=== PATIENT | female | born 1980 | race Hispanic/Latino ===

== ENCOUNTER 2020-06-26 03:57 | Emergency (ER) | payer OTHER ==
[2020-06-26] MEDS ORDERED: SODIUM CHLORIDE 0.9% 1000 ML 1,000 ML IV ONE (04:16)
--- NOTE | 2020-06-26 04:20 | Emergency Department Report ---
<WHITNEY VILLEDA KurtYang - Last Filed: 06/26/20 05:39> History of Present Illness - General Chief Complaint: Overdose Stated Complaint: OD Time Seen by Provider: 06/26/20 04:16 Source: patient, police, EMS - History of Present Illness Initial Comments: Patient is 40 years old female with no significant past medical history. Patient brought to the ER via EMS from care home for evaluation of possible overdose on Xanax and methamphetamine according to EMS report. EMS stated that care home s taff found patient to be drowsy and they gave her Narcan and she started talking. EMS stated that patient has been alert oriented x4. Upon arrival to the ER patient slightly obtunded however she stating that she is sleepy. Patient is not communicating at this moment refusing to give the reason for the overdose and the medication that she used. Complaint: other -: Last night Intent: unwilling to say - Related Data Previous Rx's Medication Instructions Recorded Last Taken Type Sulfamethoxazole/Trimethoprim 1 each PO BID #6 tablet 06/26/20 Unknown Rx [Bactrim DS TAB] Allergies Allergy/AdvReac Type Severity Reaction Status Date / Time No Known Allergies Allergy Unverified 06/26/20 06:07 ED Review of Systems Comment: Unobtainable due to pts medical conditions ED Past Medical Hx - Medications Home Medications: Home Medications Medication Instructions Recorded Confirmed Last Taken Type Sulfamethoxazole/Trimethoprim 1 each PO BID #6 tablet 06/26/20 Unknown Rx [Bactrim DS TAB] ED Physical Exam - General General appearance: in no apparent distress, obtunded - Head Head exam: Present: atraumatic, normocephalic, normal inspection - Eye Eye exam: Present: normal appearance - ENT ENT exam: Present: normal exam, normal orophraynx, mucous membranes moist - Neck Neck exam: Present: normal inspection, full ROM. Absent: tenderness, meningismus - Respiratory Respiratory exam: Present: normal lung sounds bilaterally - Cardiovascular Cardiovascular Exam: Present: regular rate, normal rhythm, normal heart sounds - GI/Abdominal GI/Abdominal exam: Present: soft, normal bowel sounds. Absent: distended, tenderness, guarding, rebound, rigid, organomegaly, mass, bruit, pulsatile mass, hernia - Extremities Exam Extremities exam: Present: normal inspection, full ROM, normal capillary refill. Absent: pedal edema, calf tenderness - Back Exam Back exam: Present: normal inspection, full ROM. Absent: CVA tenderness (R), CVA tenderness (L) - Neurological Exam Neurological exam: Present: alert, CN II-XII intact, reflexes normal. Absent: motor sensory deficit - Psychiatric Psychiatric exam: Present: flat affect - Skin Skin exam: Present: warm, dry, intact ED Medical Decision Making - Lab Data Result diagrams: 06/26/20 04:38 06/26/20 04:38 - Medical Decision Making Patient is 40 years old female with no significant past medical history. Patient brought to the ER via EMS from care home for evaluation of possible overdose on Xanax and methamphetamine according to EMS report. EMS stated that care home staff found patient to be drowsy and they gave her Narcan and she started talking. EMS stated that patient has been alert oriented x4. Upon arrival to the ER patient slightly obtunded however she stating that she is sleepy. Patient is not communicating at this moment refusing to give the reason for the overdose and the medication that she used. Patient remained asymptomatic in the ER. Patient sleeping however she is easily workable. Labs reviewed and is unremarkable. UDS is still pending. ED Disposition Clinical Impression: Illicit drug use, Methamphetamine abuse, Benzodiazepine abuse, Marijuana abuse, Hypokalemia, UTI (urinary tract infection) Disposition: - TO HOME OR SELFCARE Condition: Stable Instructions: Urinary Tract Infection, Adult, Substance Use Disorder, Hypokalemia Referrals: PRIMARY CARE, [Primary Care Provider] - 3-5 Days [facility] [Provider Group] - 3-[address] [facility] [Outside] - 3-5 Days <EDMUND ACEVES - Last Filed: 06/26/20 11:40> ED Review of Systems ROS: Stated complaint: OD Other details as noted in HPI ED Course Vital Signs 06/26/20 06/26/20 06/26/20 03:57 05:02 05:15 Temperature 98.4 F Pulse Rate 68 67 Respiratory 16 15 18 Rate Blood Pressure 150/78 142/93 O2 Sat by Pulse 98 100 Oximetry 06/26/20 06/26/20 06/26/20 05:31 05:45 06:01 Temperature Pulse Rate 66 69 67 Respiratory 16 17 17 Rate Blood Pressure 150/95 155/86 135/89 O2 Sat by Pulse 98 98 97 Oximetry 06/26/20 06/26/20 06/26/20 06:15 06:31 06:45 Temperature Pulse Rate 67 81 82 Respiratory 17 16 16 Rate Blood Pressure 152/95 141/99 146/97 O2 Sat by Pulse 98 98 99 Oximetry 06/26/20 06/26/20 06/26/20 07:01 07:15 07:31 Temperature Pulse Rate 74 66 72 Respiratory 18 15 16 Rate Blood Pressure 110/86 153/93 146/89 O2 Sat by Pulse 99 99 99 Oximetry 06/26/20 06/26/20 06/26/20 07:45 08:01 08:31 Temperature Pulse Rate 71 70 76 Respiratory 17 14 15 Rate Blood Pressure 140/91 154/90 143/96 O2 Sat by Pulse 98 99 99 Oximetry 06/26/20 06/26/20 06/26/20 08:45 09:01 09:15 Temperature Pulse Rate 71 72 71 Respiratory 14 15 15 Rate Blood Pressure 145/94 144/94 146/93 O2 Sat by Pulse 99 99 100 Oximetry 06/26/20 06/26/20 06/26/20 09:31 10:01 10:31 Temperature Pulse Rate 72 78 80 Respiratory 16 16 15 Rate Blood Pressure 142/87 142/94 144/84 O2 Sat by Pulse 99 99 98 Oximetry 06/26/20 11:00 Temperature Pulse Rate 88 Respiratory 12 Rate Blood Pressure 125/80 O2 Sat by Pulse 96 Oximetry - Reevaluation(s) Reevaluation #1: 06/26/20 11:34 Patient is currently awake and alert. Speech is clear. Patient ambulated to bathroom without assistance. Gait normal. Patient is clear for discharge back to the care home at this time. ED Medical Decision Making - Lab Data Result diagrams: 06/26/20 04:38 06/26/20 04:38 Critical care attestation.: If time is entered above; I have spent that time in minutes in the direct care of this critically ill patient, excluding procedure time. ED Disposition Is pt being admited?: No Time of Disposition: 11:40
[2020-06-26 05:02] LABS: Basophils # (Auto) 0.1 K/mm3 (0.0-0.1); Basophils % (Auto) 0.9 % (0.0-1.8); Eosinophils # (Auto) 0.4 K/mm3 (0.0-0.4); Eosinophils % (Auto) 5.3 % (0.0-4.3); Hematocrit 36.7 % (30.3-42.9); Hemoglobin 12.8 gm/dl (10.1-14.3); Lymphocytes # (Auto) 2.2 K/mm3 (1.2-5.4); Lymphocytes % (Auto) 30.9 % (13.4-35.0); Mean Corpuscular HGB Conc 35 % (30-34); Mean Corpuscular Volume 93 fl (79-97); Monocytes # (Auto) 0.9 K/mm3 (0.0-0.8); Monocytes % (Auto) 12.3 % (0.0-7.3); Platelet Count 321 K/mm3 (140-440); Red Blood Count 3.97 M/mm3 (3.65-5.03); Red Cell Distribution Width 12.6 % (13.2-15.2)
[2020-06-26 05:17] LABS: BUN/Creatinine Ratio 17; Blood Urea Nitrogen 15 mg/dL (7-17); Hemolysis Index 1
[2020-06-26 07:20] LABS: Cocaine Screen,Urine Negative; Methadone Screen,Urine Negative; Opiate Screen,Urine Negative
[2020-06-26 07:25] LABS: Bacteria,Urine 1+ /HPF (Negative); Bilirubin,Urine NEG (Negative); Blood,Urine NEG (Negative); Color,Urine Amber (Yellow); Mucus,Urine 3+ /HPF
[2020-06-26 08:01] LABS: Amphetamine Screen,Urine Positive; Benzodiazepines Screen,Urine Positive; Cannabinoid Screen,Urine Positive
--- NOTE | 2020-06-26 10:51 | Electrocardiograph Report ---
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
[2020-06-26] MEDS ORDERED: POTASSIUM CHLORIDE ER 20 MEQ TAB PO ONE (11:32)
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
[2020-06-26 14:30] VITALS: BP 122/77
== END 2020-06-26 13:45 | disposition home or self-care (01) ==
LOC: ED 03:57
DX: N39.0 Urinary tract infection, site not specified (principal); E87.6 Hypokalemia; F19.90 Other psychoactive substance use, unspecified, uncomplicated; F15.10 Other stimulant abuse, uncomplicated; F13.10 Sedative, hypnotic or anxiolytic abuse, uncomplicated; F12.10 Cannabis abuse, uncomplicated; Z79.899 Other long term (current) drug therapy
CPT/HCPCS: 36415; 80048; 80307; 81001; 84703; 85025; 93005; 99284; J7030; 80320; G0480

== ENCOUNTER 2021-02-16 01:57 | Emergency (ER) | payer SELFPAY ==
[2021-02-16] MEDS ORDERED: PHENAZOPYRIDINE 200 MG TAB PO ONE (02:36)
[2021-02-16 02:38] VITALS: BP 128/42
--- NOTE | 2021-02-16 03:02 | Emergency Department Report ---
ED Abdominal Pain HPI - General Chief Complaint: Abdominal Pain Stated Complaint: ABD PAIN Time Seen by Provider: 02/16/21 02:36 Source: patient Mode of arrival: Ambulatory Limitations: No Limitations - History of Present Illness Initial Comments: Patient presents secondary to lower abdominal pain. She believes that she has a urinary tract infection. She has had some lower abdominal cramping and burning for the last couple of days. She has had dysuria and frequency associated with this. There is no trauma associated with this. She has had no fevers or chills. There is no cough congestion. She states the pain is started to hurt into her back on both sides. She was concerned that she might be developing a kidney infection. Patient has no recent travel. She has not been on antibiotics lately. She has not noticed hematuria. She also reports having upper respiratory infection with some cold sores around her mouth. She was concerned about that as well. There is no significant cough. She has no fevers. She has no known coronavirus exposure. Severity scale (0 -10): 8 - Related Data Previous Rx's Medication Instructions Recorded Last Taken Type Albuterol Sulfate [Proventil Hfa] 2 puff IH 4XD #1 inh 02/16/21 Unknown Rx Benzonatate [Tessalon Perles] 100 mg PO Q8HR #21 cap 02/16/21 Unknown Rx Doxycycline Monohydrate 100 mg PO BID #20 cap 02/16/21 Unknown Rx [Doxycycline Monohydrate CAP] Allergies Allergy/AdvReac Type Severity Reaction Status Date / Time No Known Allergies Allergy Unverified 06/26/20 06:07 ED Review of Systems ROS: Stated complaint: ABD PAIN Other details as noted in HPI Comment: All other systems reviewed and negative Constitutional: denies: fever Eyes: denies: vision change ENT: as per HPI Respiratory: see HPI Cardiovascular: denies: chest pain Gastrointestinal: as per HPI Genitourinary: as per HPI Musculoskeletal: as per HPI Skin: denies: pruritus Neurological: denies: headache Hematological/Lymphatic: denies: easy bruising ED Past Medical Hx - Past Medical History Previous Medical History?: No - Family History Family history: no significant - Social History Smoking Status: Unknown if ever smoked Substance Use Type: None - Medications Home Medications: Home Medications Medication Instructions Recorded Confirmed Last Taken Type Albuterol Sulfate [Proventil Hfa] 2 puff IH 4XD #1 inh 02/16/21 Unknown Rx Benzonatate [Tessalon Perles] 100 mg PO Q8HR #21 cap 02/16/21 Unknown Rx Doxycycline Monohydrate 100 mg PO BID #20 cap 02/16/21 Unknown Rx [Doxycycline Monohydrate CAP] ED Physical Exam - General Limitations: No Limitations, Other (Pulse ox noted and normal) General appearance: alert, in no apparent distress - Head Head exam: Present: atraumatic - Eye Eye exam: Present: normal appearance, EOMI. Absent: scleral icterus - ENT ENT exam: Present: normal orophraynx, normal external ear exam, other (Patient has cold sores on upper and lower lips) - Neck Neck exam: Present: normal inspection. Absent: meningismus - Respiratory Respiratory exam: Present: normal lung sounds bilaterally. Absent: respiratory distress - Cardiovascular Cardiovascular Exam: Present: regular rate, normal rhythm - GI/Abdominal GI/Abdominal exam: Present: soft, tenderness (Suprapubic). Absent: guarding, rebound - Extremities Exam Extremities exam: Present: normal capillary refill - Back Exam Back exam: Present: CVA tenderness (R) (Mild), CVA tenderness (L) (Mild) - Neurological Exam Neurological exam: Present: alert, oriented X3, CN II-XII intact, normal gait - Psychiatric Psychiatric exam: Present: normal affect, normal mood - Skin Skin exam: Present: warm, dry ED Course Vital Signs 02/16/21 02:34 Temperature 97.8 F Pulse Rate 94 H Respiratory 18 Rate Blood Pressure 128/42 [Right] O2 Sat by Pulse 96 Oximetry - Reevaluation(s) Reevaluation #1: 02/16/21 03:00 UA was ordered. Old records noted. Reevaluation #2: 02/16/21 04:53 UA was noted. ED Medical Decision Making - Medical Decision Making Patient presents with upper respiratory symptoms that could well be coronavirus. She has been informed that she can get tested as an outpatient. There are no adventitious breath sounds to suggest pneumonia. I do not believe this is bacterial in nature. She also reported some suprapubic pain and dysuria. This would be consistent with urethritis given the fact that her UA is negative for an acute infection. She was treated with doxycycline for a presumed urethritis and referred for outpatient evaluation. There was no so ectopic had b een excluded. There were no peritoneal findings. Critical Care Time: No Critical care attestation.: If time is entered above; I have spent that time in minutes in the direct care of this critically ill patient, excluding procedure time. ED Disposition Clinical Impression: Lower abdominal pain, Viral URI, Urethritis Disposition: HOME / SELF CARE / HOMELESS Is pt being admited?: No Condition: Stable Instructions: Viral Respiratory Infection, [id number], Abdominal Pain, Adult, [id number], Flank Pain, Adult, [id number], Abdominal Pain (ED), Pain Without a Known Cause Additional Instructions: Have a bland diet. Drink plenty water. Return for problems. Use Tylenol for fever. Follow-up with your regular doctor or the referral doctor for recheck. Prescriptions: Doxycycline Monohydrate [Doxycycline Monohydrate CAP] 100 mg PO BID #20 cap Albuterol Sulfate [Proventil Hfa] 2 puff IH 4XD #1 inh Benzonatate [Tessalon Perles] 100 mg PO Q8HR #21 cap Referrals: PRIMARY CAREMD [Referring] - 3-5 Days REGINA SUNSHINE MD [Staff Physician] - 3-5 Days Forms: STI Treatment and Prevention
[2021-02-16 04:42] LABS: Bilirubin,Urine NEG (Negative); Blood,Urine NEG (Negative); Color,Urine Yellow (Yellow); HCG Qualitative,Urine Negative (Negative); Protein,Urine <15 mg/dL mg/dL (Negative); Urobilinogen,Urine < 2.0 mg/dL (<2.0)
== END 2021-02-16 05:23 | disposition home or self-care (01) ==
LOC: ED 01:57
DX: N34.2 Other urethritis (principal); J06.9 Acute upper respiratory infection, unspecified; R10.30 Lower abdominal pain, unspecified
CPT/HCPCS: 81001; 81025; 99283

== ENCOUNTER 2021-09-02 00:05 | Emergency (ER) | payer OTHER ==
[2021-09-02 00:42] VITALS: BP 120/68
[2021-09-02 05:27] LABS: Bilirubin,Urine Negative (Negative); Blood,Urine Negative (Negative); Color,Urine Yellow (Yellow)
[2021-09-02 05:32] LABS: Mucus,Urine FEW /HPF
--- NOTE | 2021-09-02 05:54 | Emergency Department Report ---
ED Female HPI - General Chief complaint: Urogenital-Female Stated complaint: ABD PAIN/SINUS/PAINFUL URINATION Time Seen by Provider: 09/02/21 05:03 Source: patient Mode of arrival: Ambulatory Limitations: No Limitations - History of Present Illness Complaint: dysuria -: Gradual, days(s) (3) Radiation: suprapubic Severity: mild, moderate Quality: burning (Increased urinary frequency decreased urinary production. No hematuria no fever chills sweats.) Consistency: constant Improves with: none Worsens with: none Are you Now?: No Associated Symptoms: other (She also has suprapubic nodule nodule/mass discomfort fluctuates in size from time to time of unknown etiology.). denies: denies other symptoms, vaginal bleeding, abdominal pain, hematuria, rash, shortness of breath, syncope - Related Data Previous Rx's Medication Instructions Recorded Last Taken Type Albuterol Sulfate [Proventil Hfa] 2 puff IH 4XD #1 inh 02/16/21 Unknown Rx Benzonatate [Tessalon Perles] 100 mg PO Q8HR #21 cap 02/16/21 Unknown Rx Doxycycline Monohydrate 100 mg PO BID #20 cap 02/16/21 Unknown Rx [Doxycycline Monohydrate CAP] Nitrofurantoin Newton/M-Cryst 100 mg PO Q12HR #20 capsule 09/02/21 Unknown Rx [Macrobid CAP] Phenazopyridine [Pyridium] 200 mg PO TID #9 tab 09/02/21 Unknown Rx Allergies Allergy/AdvReac Type Severity Reaction Status Date / Time No Known Allergies Allergy Unverified 06/26/20 06:07 ED Review of Systems ROS: Stated complaint: ABD PAIN/SINUS/PAINFUL URINATION Other details as noted in HPI Comment: All other systems reviewed and negative ED Past Medical Hx - Social History Smoking Status: Unknown if ever smoked Substance Use Type: None - Medications Home Medications: Home Medications Medication Instructions Recorded Confirmed Last Taken Type Albuterol Sulfate [Proventil Hfa] 2 puff IH 4XD #1 inh 02/16/21 Unknown Rx Benzonatate [Tessalon Perles] 100 mg PO Q8HR #21 cap 02/16/21 Unknown Rx Doxycycline Monohydrate 100 mg PO BID #20 cap 02/16/21 Unknown Rx [Doxycycline Monohydrate CAP] Nitrofurantoin Newton/M-Cryst 100 mg PO Q12HR #20 capsule 09/02/21 Unknown Rx [Macrobid CAP] Phenazopyridine [Pyridium] 200 mg PO TID #9 tab 09/02/21 Unknown Rx ED Physical Exam - General Limitations: No Limitations General appearance: alert, in no apparent distress - Head Head exam: Present: atraumatic, normocephalic - Eye Eye exam: Present: normal appearance, PERRL, EOMI Pupils: Present: normal accommodation, irregular - ENT ENT exam: Present: normal exam, normal orophraynx, mucous membranes moist, TM's normal bilaterally - Neck Neck exam: Present: normal inspection - Respiratory Respiratory exam: Present: normal lung sounds bilaterally. Absent: respiratory distress - Cardiovascular Cardiovascular Exam: Present: regular rate, normal rhythm. Absent: systolic murmur, diastolic murmur, rubs, gallop - GI/Abdominal GI/Abdominal exam: Present: soft, tenderness, normal bowel sounds, other (Examination no obvious masses appreciated there is a reducible hernia to the suprapubic region. But the area is fluctuant.) - Extremities Exam Extremities exam: Present: normal inspection, normal capillary refill - Back Exam Back exam: Present: normal inspection. Absent: CVA tenderness (R), CVA tenderness (L) - Neurological Exam Neurological exam: Present: alert, oriented X3, CN II-XII intact - Psychiatric Psychiatric exam: Present: normal affect, normal mood - Skin Skin exam: Present: warm, dry, intact, normal color. Absent: rash ED Course Vital Signs 09/02/21 00:34 Temperature 98.7 F Pulse Rate 87 Respiratory 15 Rate Blood Pressure 120/68 [Right] O2 Sat by Pulse 98 Oximetry Critical care attestation.: If time is entered above; I have spent that time in minutes in the direct care of this critically ill patient, excluding procedure time. ED Disposition Clinical Impression: UTI (urinary tract infection) Disposition: 02 SHORT TERM HOSPITAL Is pt being admited?: No Does the pt Need Aspirin: No Condition: Stable Instructions: Urinary Tract Infection, Adult, [id number], Urinary Tract Infection, Adult Prescriptions: Nitrofurantoin [place]/M-Cryst [Macrobid CAP] 100 mg PO Q12HR #20 capsule Phenazopyridine [Pyridium] 200 mg PO TID #9 tab Referrals: REGINA SUNSHINE MD [Primary Care Provider] - 3-5 Days
== END 2021-09-02 06:28 | disposition short-term general hospital (02) ==
LOC: ED 00:05
DX: N39.0 Urinary tract infection, site not specified (principal)
CPT/HCPCS: 81001; 99282